=== PATIENT | female | born 1970 | race Caucasian/White ===

== ENCOUNTER 2016-11-23 17:30 | Emergency (ER) | payer BC ==
--- NOTE | 2016-11-23 17:39 | UC ---
Complaint Female HPI - HPI Summary HPI Summary: 46 YEAR OLD FEMALE PRESENTS WITH COMPLAINS OF FREQUENCY,URGENCY AND BURNING WITH URINATION. - History Of Current Complaint Stated Complaint: URINARY Time Seen by Provider: 11/23/16 17:38 Hx Obtained From: Patient Hx Last Menstrual Period: 10/26 or Onset/Duration: Sudden Onset Timing: Constant Severity Initially: Moderate Severity Currently: Moderate Pain Scale Used: 0-10 Numeric - 5 Character: Sharp, Cramping - Allergies/Home Medications Allergies/Adverse Reactions: Allergies Allergy/AdvReac Type Severity Reaction Status Date / Time Sulfa Antibiotics Allergy Anaphylatic Verified 11/23/16 17:43 Shock ? Amoxicillin Allergy Hives Uncoded 11/02/13 12:32 PMH/Surg Hx/FS Hx/Imm Hx Previously Healthy: Yes - Surgical History Surgical History: Yes Surgery Procedure, Year, and Place: D and C r/t miscarriage, - Family History Known Family History: Positive: None - Social History Alcohol Use: Occasionally Substance Use Type: None Smoking Status (MU): Former Smoker Review of Systems Constitutional: Negative Skin: Negative Eyes: Negative ENT: Negative Respiratory: Negative Cardiovascular: Negative Gastrointestinal: Negative Genitourinary: Dysuria, Frequency, Urgency Motor: Negative Neurovascular: Negative Musculoskeletal: Negative Neurological: Negative Psychological: Negative All Other Systems Reviewed And Are Negative: Yes Physical Exam Triage Information Reviewed: Yes Vital Signs Reviewed: Yes Eye Exam: Normal ENT Exam: Normal Dental Exam: Normal Neck exam: Normal Neck: Positive: 1 Respiratory Exam: Normal Cardiovascular Exam: Normal Abdominal Exam: Normal Musculoskeletal Exam: Normal Neurological Exam: Normal Psychological Exam: Normal Skin Exam: Normal Complaint Female Dx - Differential Dx/Diagnosis Provider Diagnoses: URINARY FREQUNECY. URINARY URGENCY. BURNING WITH URINATION Discharge - Discharge Plan Condition: Stable Disposition: HOME Prescriptions: Nitrofurantoin Monohyd Macro [Macrobid] 100 mg PO BID #14 cap Patient Education Materials: Urinary Tract Infection in Women (ED) Referrals: Bev Early MD [Primary Care Provider] -
[2016-11-23 17:44] VITALS: BP 121/76
== END 2016-11-23 18:07 | disposition home or self-care (01) ==
LOC: UCCORT 17:30
DX: R35.0 Frequency of micturition (principal); R39.15 Urgency of urination; R30.9 Painful micturition, unspecified; Z87.891 Personal history of nicotine dependence
CPT/HCPCS: 81003; 87086; 99212; G0463

== ENCOUNTER 2018-10-02 13:25 | Emergency (ER) | payer BC ==
[2018-10-02 14:03] VITALS: BP 139/87
--- NOTE | 2018-10-02 14:42 | UC ---
Throat Pain/Nasal Wayne HPI - HPI Summary HPI Summary: 5 day history of sinus congestion and fever, mild cough. Not improving, last ibuprofen was about 3 hours ago. Concerned about allergic history. - History of Current Complaint Chief Complaint: UCGeneralIllness Stated Complaint: SINUS COMPLAINT Time Seen by Provider: 10/02/18 14:32 Hx Obtained From: Patient Hx Last Menstrual Period: 08/2018 Onset/Duration: Gradual Onset, Lasting Days - 5 Severity: Moderate Pain Intensity: 0 Cough: Nonproductive Associated Signs & Symptoms: Positive: Sinus Discomfort, Nasal Discharge, Fever - Epiglottits Risk Factors Epiglottis Risk Factors: Negative - Allergies/Home Medications Allergies/Adverse Reactions: Allergies Allergy/AdvReac Type Severity Reaction Status Date / Time Sulfa (Sulfonamide Allergy Anaphylatic Verified 10/02/18 13:58 Antibiotics) Shock ? Amoxicillin Allergy Hives Uncoded 10/02/18 13:58 Home Medications: Home Medications Ibuprofen TAB* [Motrin TAB* 600 MG] 600 mg PO Q6H PRN 10/02/18 [History Confirmed 10/02/18] PMH/Surg Hx/FS Hx/Imm Hx Previously Healthy: Yes GI/ History: Other - hx of medullary sponge kidney but reports normal renal function. - Surgical History Surgical History: Yes Surgery Procedure, Year, and Place: D and C r/t miscarriage - Family History Known Family History: Positive: None - Social History Occupation: Employed Full-time Lives: With Family Alcohol Use: Occasionally Substance Use Type: None Smoking Status (MU): Former Smoker Review of Systems All Other Systems Reviewed And Are Negative: Yes Constitutional: Positive: Fever, Fatigue ENT: Positive: Nasal Discharge, Sinus Congestion Cardiovascular: Positive: Negative Genitourinary: Positive: Negative Motor: Positive: Negative Physical Exam Triage Information Reviewed: Yes Appearance: Ill-Appearing - congested, mildly unwell Vital Signs: Initial Vital Signs Temp 99.2 F 10/02/18 13:59 Pulse 110 10/02/18 13:59 Resp 15 10/02/18 13:59 BP 139/87 10/02/18 13:59 Pulse Ox 100 10/02/18 13:59 Eye Exam: Normal ENT: Positive: Pharyngeal erythema, Nasal congestion, Sinus tenderness - bilateral maxillary Neck: Positive: Supple, Nontender, No Lymphadenopathy Respiratory: Positive: Lungs clear, Normal breath sounds Cardiovascular: Positive: RRR, No Murmur Musculoskeletal Exam: Normal Neurological Exam: Normal Neurological: Positive: Alert, Muscle Tone Normal Psychological Exam: Other - anxious at medical visits, with elevated blood pressure and heart rate. Skin Exam: Normal Throat Pain/Nasal Course/Dx - Course Course Of Treatment: doxycycline for treatment of acute sinusitis, continue ibuprofen as needed. - Differential Dx/Diagnosis Differential Diagnosis/HQI/PQRI: Pharyngitis, Sinusitis, URI Provider Diagnosis: Acute maxillary sinusitis Discharge - Sign-Out/Discharge Documenting (check all that apply): Patient Departure All imaging exams completed and their final reports reviewed: No Studies - Discharge Plan Condition: Stable Disposition: HOME Prescriptions: DOXYcycline CAP(*) [DOXYcycline 100MG CAP(*)] 100 mg PO BID #14 cap Patient Education Materials: Sinusitis (ED) Referrals: Bev Early MD [Primary Care Provider] - Additional Instructions: You have been prescribed doxycycline for treatment of acute sinusitis. Continue ibuprofen for relief of fever and pain, but fever should be resolved in 2 to 3 days. You could add a nasal steroid such as flonase to help to relieve sinus pressure , using 2 sprays to both nostrils once daily. This is available over the counter. - Billing Disposition and Condition Condition: STABLE Disposition: Home
== END 2018-10-02 15:01 | disposition home or self-care (01) ==
LOC: UCCORT 13:25
DX: J01.00 Acute maxillary sinusitis, unspecified (principal); Z88.2 Allergy status to sulfonamides; Z87.891 Personal history of nicotine dependence
CPT/HCPCS: 99212; G0463

== ENCOUNTER 2018-10-29 12:52 | Emergency (ER) | payer BC ==
--- OUTSIDE RECORDS SUMMARY | 2018-10-29 13:08 | XMS REPORT | Continuity of Care Document ---
:1970 External Reference #:[id number] Author Name Jovi Greene Care Team Providers Name Role Phone Bev Early MD Care Team Information Tool Specialist Unavailable Bev Early MD Primary Care Physician Unavailable Payers Date Identification Numbers Payment Provider Subscriber Policy Number: [id number] [employer] Ramsey Arauz PayID: [id number] [address] [address] [place] [address] Family History Date Family Member(s) Observation Comments General Multiple Sclerosis (MS) General Pancreatic Cancer General Hypertension General Stroke General Rheumatoid Arthritis Father Hypertension Father Pancreatic Cancer Mother Hypertension Mother Stroke Mother Multiple Sclerosis (MS) Mother Rheumatoid Arthritis Social History Type Date Description Comments Sex Unknown Marital Status Lives With Family Occupation Rail Car Operator Tobacco Use Start: Unknown Never Smoked Cigarettes Smoking Status Reviewed: 10/06/18 Never Smoked Cigarettes Tobacco Use Start: Unknown Never Smoked Cigars Tobacco Use Start: Unknown Never Smoked A Pipe Smokeless Tobacco Never Used Smokeless Tobacco ETOH Use Occasionally consumes alcohol Tobacco Use Start: Unknown Patient has never smoked Allergies, Adverse Reactions, Alerts Active Allergies Reaction Severity Comments Date Sulfa Antibiotics hives 07/14/2015 Penicillins 03/22/2016 Doxycycline Hives 10/06/2018 Medications Active Medications SIG Qnty Indications Ordering Provider Date Azithromycin 2 tabs by mouth Howard Bustos 250mg Tablets on the 1st day MD Duc and 1 tab by mouth x4 days History Medications No Active Medications Unknown 07/14/2015 - 07/14/2015 Azithromycin take 2 tablets by 6tabs [id number] Ravi 07/14/2015 - 250mg mouth one time on [facility], 10/05/2018 Tablets the first day for M.D. throat infection then take 1 tablet by mouth daily for 4 days Vital Signs Date Vital Result Comment 10/06/2018 2:53pm Height 64 inches 5'4" Weight 150.00 lb Heart Rate 116 /min BP Systolic Sitting 124 mmHg BP Diastolic Sitting 84 mmHg Respiratory Rate 16 /min Body Temperature 100.4 F Pain Level 0 O2 % BldC Oximetry 99 % BMI (Body Mass Index) 25.7 kg/m2 07/14/2015 9:51am Height 64 inches 5'4" Weight 135.00 lb Heart Rate 78 /min BP Systolic Sitting 122 mmHg BP Diastolic Sitting 76 mmHg Body Temperature 99.6 F BMI (Body Mass Index) 23.2 kg/m2 Procedures Date Code Description Status 07/14/2015 19182 Binocular Microscopy Completed Encounters Type Date Location Provider Dx Diagnosis Office Visit 07/14/2015 [facility] H61.21 Impacted cerumen, 10:00a [facility] right ear [place] J01.90 Acute sinusitis, unspecified Plan of Treatment 07/14/2015 - [facility] Beal M.D.H61.21 Impacted cerumen, right earComments: The patient had cerumen impaction that was cleaned without difficulty. We discussed using alcohol and vinegar in a 50:50 mixture as a preventative.J01.90 Acute sinusitis, unspecifiedNew Medication:Azithromycin 250 mg - take 2 tablets by mouth one time on the first day for throat infection then take 1 tablet by mouth daily for 4 daysComments:The patient has an acute sinusitis with pus draining from her sinuses.
[2018-10-29 13:16] VITALS: BP 133/68
--- NOTE | 2018-10-29 13:59 | UC ---
Complaint Female HPI - HPI Summary HPI Summary: Pt presents with c/o sudden onset of urinary frequency, urgency and dysuria X 2 days. Pt verbalizes that she has significant "white coat syndrome" and is anxious during PE. - History Of Current Complaint Chief Complaint: UCGU Stated Complaint: URINARY COMPLAINT Time Seen by Provider: 10/29/18 13:30 Hx Obtained From: Patient Hx Last Menstrual Period: about 4 weeks ago-premenopausal ?: No Onset/Duration: Sudden Onset, Lasting Days, Still Present Timing: Constant Severity Initially: Mild Severity Currently: Mild Pain Intensity: 2 Pain Scale Used: 0-10 Numeric Character: Dull, Burning Aggravating Factor(s): Urination Alleviating Factor(s): Nothing Associated Signs And Symptoms: Positive: Negative - Risk Factors Ectopic Risk Factor: Negative Ovarian Torsion Risk Factor: Negative - Allergies/Home Medications Allergies/Adverse Reactions: Allergies Allergy/AdvReac Type Severity Reaction Status Date / Time doxycycline Allergy Itching Verified 10/29/18 13:18 Penicillins Allergy Hives Verified 10/29/18 13:18 Sulfa (Sulfonamide Allergy Anaphylatic Verified 10/29/18 13:18 Antibiotics) Shock PMH/Surg Hx/FS Hx/Imm Hx Previously Healthy: Yes Psychological History: Anxiety - Surgical History Surgical History: Yes Surgery Procedure, Year, and Place: D and C r/t miscarriage - Family History Known Family History: Positive: None - Social History Occupation: Works From/At Home Lives: With Family Alcohol Use: Occasionally Substance Use Type: None Smoking Status (MU): Former Smoker Have You Smoked in the Last Year: No - Immunization History Vaccination Up to Date: Yes Review of Systems All Other Systems Reviewed And Are Negative: Yes Constitutional: Positive: Negative Skin: Positive: Negative Eyes: Positive: Negative ENT: Positive: Negative Respiratory: Positive: Negative Cardiovascular: Positive: Negative Gastrointestinal: Positive: Negative Genitourinary: Positive: Dysuria, Frequency, Urgency Motor: Positive: Negative Neurovascular: Positive: Negative Musculoskeletal: Positive: Negative Neurological: Positive: Negative Psychological: Positive: Negative Is Patient Immunocompromised?: No Physical Exam Triage Information Reviewed: Yes Appearance: Well-Appearing Vital Signs: Initial Vital Signs Temp 97.8 F 10/29/18 13:09 Pulse 88 10/29/18 13:09 Resp 16 10/29/18 13:09 BP 133/68 10/29/18 13:09 Pulse Ox 100 10/29/18 13:09 Vital Signs Reviewed: Yes Eye Exam: Normal ENT Exam: Normal ENT: Positive: Hearing grossly normal Dental Exam: Normal Neck exam: Normal Respiratory Exam: Normal Cardiovascular Exam: Normal Abdominal Exam: Normal Abdomen Description: Positive: Nontender Musculoskeletal Exam: Normal Neurological Exam: Normal Psychological Exam: Normal Skin Exam: Normal Complaint Female Dx - Differential Dx/Diagnosis Differential Diagnosis/HQI/PQRI: Sexually Transmitted Disease, Urinary Tract Infection Provider Diagnosis: UTI (urinary tract infection) Discharge - Sign-Out/Discharge Documenting (check all that apply): Patient Departure All imaging exams completed and their final reports reviewed: No Studies - Discharge Plan Condition: Stable Disposition: HOME Prescriptions: Nitrofurantoin Monohyd/M-Cryst [Macrobid 100 mg Capsule] 100 mg PO Q12H #10 cap Phenazopyridine TAB* [Pyridium 100 mg TAB*] 100 mg PO Q8H #3 tab Patient Education Materials: Urinary Tract Infection in Women (ED) Referrals: Bev Early MD [Primary Care Provider] - If Needed - Billing Disposition and Condition Condition: STABLE Disposition: Home - Attestation Statements Provider Attestation: Per institutional requirements, I have reviewed the chart, however, I was not consulted specifically or made aware of this patient by the midlevel provider. I did not personally evaluate, interact with , or disposition this patient.
== END 2018-10-29 13:48 | disposition home or self-care (01) ==
LOC: UCCORT 12:52
DX: N39.0 Urinary tract infection, site not specified (principal); R03.0 Elevated blood-pressure reading, without diagnosis of hypertension; F41.9 Anxiety disorder, unspecified; Z88.1 Allergy status to other antibiotic agents; Z88.0 Allergy status to penicillin; Z88.2 Allergy status to sulfonamides; Z87.891 Personal history of nicotine dependence
CPT/HCPCS: 81003; 87086; 99211; G0463

== ENCOUNTER 2022-04-09 05:55 | Inpatient (IN) ==
[2022-04-09] MEDS ORDERED: Lactated Ringers 1000 ml BAG 1,000 ML IV SCH (06:00)
[2022-04-09] MEDS ORDERED: Famotidine IV 10 MG/ML 2 ml VIAL (20 mg) IV ONE (06:00)
[2022-04-09] MEDS ORDERED: Buffered Lidocaine 1% SYRIN 1 ml INTRADERM ONE (06:00)
[2022-04-09] MEDS ORDERED: Heparin 5000 UNITS/ML 1 mL VIAL ONE (06:18)
[2022-04-09] MEDS ORDERED: Scopolamine 1 mg/72hr PATCH ONE (06:18)
[2022-04-09] MEDS ORDERED: Dexamethasone IV 4 MG/ML VIAL 1 ml VIAL ONE (06:19)
[2022-04-09] MEDS ORDERED: Lidocaine 4% CREAM (LMX) 5 GM TUBE TOPICAL ONE (06:19)
[2022-04-09] MEDS ORDERED: ceFAZolin 2 GM PREMIX 2 GM/50 ML BAG ONE (06:19)
[2022-04-09] MEDS ORDERED: Ondansetron 4 mg VIAL 2 MG/ML 2 ml VIAL ONE ×2 (06:19→16:34)
[2022-04-09] MEDS ORDERED: Famotidine IV 10 MG/ML 2 ml VIAL (20 mg) ONE (06:22)
[2022-04-09] MEDS ORDERED: ISOSULFAN BLUE 1% 5 ML VIAL 10 MG/ML SUBCUT ONE ×2 (09:28→10:27)
[2022-04-09] MEDS ORDERED: Gentamicin ADULT 40 MG/ML VIAL (2 ML VIAL = 80 MG) ONE ×2 (09:28→13:08)
[2022-04-09] MEDS ORDERED: Povidone Iodine 5% OPTH 30 ML BTL ONE ×2 (09:28→13:10)
[2022-04-09] MEDS ORDERED: Bupivacaine 0.5% 50 ML MDV VIAL ONE (09:28)
[2022-04-09] MEDS ORDERED: Bupivacaine 0.25% SDV 30 ML ONE (09:29)
[2022-04-09] MEDS ORDERED: ceFAZolin VIAL VIAL ONE ×2 (09:29→13:09)
[2022-04-09] MEDS ORDERED: Rocuronium 50 mg VIAL 10 mg/ml 5 ml VIAL (50 mg) ONE (09:39)
[2022-04-09] MEDS ORDERED: fentaNYL 250 mcg/5 ml 50 MCG/ML 5 ml VIAL (250 MCG) ONE (09:39)
[2022-04-09] MEDS ORDERED: Propofol 10 MG/ML 20 ML BTL ONE (09:39)
[2022-04-09] MEDS ORDERED: Lidocaine 2% PF 5 ML VIAL ONE (09:39)
[2022-04-09] MEDS ORDERED: Midazolam 2 mg/2 ml VIAL 1 mg/ml 2 ml VIAL (2 mg) ONE (09:43)
[2022-04-09] MEDS ORDERED: Methylene Blue 0.5 % 50 MG/10 ML AMP IV ONE (10:32)
[2022-04-09] MEDS ORDERED: Sodium Chloride 0.9% 10 ML ONE (11:06)
[2022-04-09] MEDS ORDERED: Naloxone 0.4 mg VIAL 0.4 mg/ml 1 ml VIAL IV PRN (13:06)
[2022-04-09] MEDS ORDERED: fentaNYL 100 mcg/2 ml 50 MCG/ML VIAL IV PRN (13:06)
[2022-04-09] MEDS ORDERED: HYDROmorphone 1 MG/1 ML SYRINGE IV PRN (13:06)
[2022-04-09] MEDS ORDERED: ceFAZolin 2 GM in NS PREMIX 2 GM/100 ML BAG IVPB ONE (14:26)
[2022-04-09] MEDS ORDERED: Benzocaine/Menthol LOZ PO PRN (15:13)
[2022-04-09] MEDS ORDERED: HYDROcodone/ACETAMIN 5/325 mg TAB PO PRN (15:15)
[2022-04-09] MEDS ORDERED: Morphine 2 MG/ML SYRINGE IV PRN (15:15)
[2022-04-09] MEDS ORDERED: fentaNYL 100 mcg/2 ml 50 MCG/ML VIAL ONE (17:36)
[2022-04-09] MEDS: ceFAZolin 2 GM in NS PREMIX 2 GM/100 ML BAG IVPB SCH (20:02)
[2022-04-09] MEDS: Heparin 5000 UNITS/ML 1 mL VIAL SUBCUT SCH (21:58)
[2022-04-10] MEDS: ceFAZolin 2 GM in NS PREMIX 2 GM/100 ML BAG IVPB SCH (03:06)
[2022-04-10] MEDS: Heparin 5000 UNITS/ML 1 mL VIAL SUBCUT SCH (05:55)
[2022-04-10 07:47] VITALS: BP 96/68
== END 2022-04-10 11:10 | disposition home or self-care (01) | DRG 362 ==
LOC: AA 05:55 → SSU 19:03
PROVIDERS: ADMIT Student in an Organized Health Care Education/Training Program; ATTEND Student in an Organized Health Care Education/Training Program